=== PATIENT | female | born 1990 | race Caucasian/White ===

== ENCOUNTER 2016-04-02 18:07 | Emergency (ER) | payer OTHER ==
[~2016-04-02] VITALS: Ht 160 cm; Wt 75.2 kg
[~2016-04-02 18:07] MED LIST: AZITHROMYCIN250 MG1 PO; BACLOFEN20 MG PO; BENADRYL25 MG PO; BENTYL10 MG PO; BUPROPION XL150 MG PO; CIPRO500 MG PO; Feosol PO; IBUPROFEN600 MG PO; KEFLEX500 MG PO; MAGIC MOUTHWASH1 ML MM; METHADONE1 MG/1 ML PO; METHADOSE40 MG PO; NATALCARE RX1 TABLET PO; PAROXETINE HCL20 MG PO; PEPCID20 MG PO; PERCOCET 5/31 TABLET PO; PREDNISONE20 MG PO; ROZEREM8 MG PO; SPRINTEC1 EACH PO; VENTOLIN HFA18 GM IH; ZOFRAN4 MG PO
[2016-04-02 19:23] LABS: HEMATOCRIT 39.6 % (36.0-46.0); MCH 29.9 PG (29.0-34.0); MCHC 34.8 G/DL (30.0-36.0); MCV 85.9 FL (83-99); PLATELET COUNT 235 K/uL (156-360); RBC DIS.WIDTH-SD 40.4 % (39-53); RED BLOOD COUNT 4.61 M/uL (3.80-5.20); WHITE BLOOD COUNT 16.7 K/uL (4.1-10.2)
[2016-04-02 19:35] LABS: CHLORIDE 102 mEq/L (99-109); POTASSIUM 3.7 mEq/L (3.7-5.4); SODIUM 139 mEq/L (136-147)
[2016-04-02 19:36] LABS: GLUCOSE 122 mg/dL (70-99)
[2016-04-02 19:38] LABS: ANION GAP 11 MEQ/L (2-14)
[2016-04-02 19:40] LABS: GFR ESTIMATE (CALCULATED) > 59 mL/min/
[2016-04-02 19:41] LABS: UREA NITROGEN (BUN) 7 mg/dL (9-23)
[2016-04-02 19:53] LABS: D-DIMER ELISA 0.27 mg/L FEU (< 0.57)
[2016-04-02] MEDS ORDERED: VENTOLIN HFA18 GM IH (22:53)
[2016-04-02] MEDS ORDERED: PREDNISONE20 MG PO (22:54)
[2016-04-02] MEDS ORDERED: ZITHROMAX Z-PA250 MG PO (22:54)
[2016-04-02 23:08] VITALS: BP 126/85
== END 2016-04-02 23:11 | disposition home or self-care (01) ==
LOC: EME → EDBD 18:07 → EME 18:07
PROVIDERS: Emergency Medicine
DX: J20.9 Acute bronchitis, unspecified (principal); J45.909 Unspecified asthma, uncomplicated
CPT/HCPCS: 71020; 80048; 83880; 85027; 85379; 85610; 85730; 99281; 99285; J7030

== ENCOUNTER 2016-10-21 12:40 | Observation (INO) | payer OTHER ==
[~2016-10-21] VITALS: Ht 160 cm; Wt 77.2 kg
[~2016-10-21 12:40] MED LIST changes: +LEVONO-E ESTRA1 EACH PO; -METHADONE1 MG/1 ML PO; +METHADONE10 MG/1 M1 PO; -SPRINTEC1 EACH PO; +ZITHROMAX Z-PA250 MG PO
[2016-10-21] MEDS ORDERED: ACID CONTROL150 MG PO (16:09)
[2016-10-21] MEDS ORDERED: VENTOLIN HFA18 GM IH (16:09)
[2016-10-21] MEDS ORDERED: CYANOCOBALAM1000 MCG PO (16:10)
[2016-10-21] MEDS ORDERED: ONE-A-DAY ESSE1 EAC1 PO (16:10)
[2016-10-21] MEDS ORDERED: PROVENTIL,2.5 MG/3 M IH (16:10)
[2016-10-21] MEDS ORDERED: WELLBUTRIN XL150 MG PO (16:10)
[2016-10-21] MEDS ORDERED: ADDERALL20 MG PO (16:11)
[2016-10-21] MEDS ORDERED: IRON325 M1 PO (16:12)
[2016-10-21] MEDS ORDERED: NEURONTIN100 MG PO (16:12)
[2016-10-21] MEDS ORDERED: SENNA PLUS TAB1 EACH PO (16:13)
[2016-10-21] MEDS ORDERED: ALEVE220 MG PO (16:14)
[2016-10-21 17:25] VITALS: BP 127/71
[2016-10-21 19:21] LABS: EOSINOPHIL (%) 0.1 % (0-5); HEMATOCRIT 41.5 % (36.0-46.0); IMMATURE GRANULOCYTE (%) 0.3 % (0.0-0.7); INSTRUMENT ABS NEUTROPHIL CT 7.3 K/uL; LYMPHOCYTE COUNT 0.6 K/uL (1.0-2.8); MCH 29.7 PG (29.0-34.0); MCV 87.4 FL (83-99); MONOCYTE (%) 0.3 % (3-12); NEUTROPHIL (%) 92.1 % (45-76); NEUTROPHIL COUNT 7.3 K/uL (1.8-6.4); PLATELET COUNT 256 K/uL (156-360); RBC DIS.WIDTH-CV 13.2 % (11.8-14.6); RBC DIS.WIDTH-SD 42.5 % (39-53); RED BLOOD COUNT 4.75 M/uL (3.80-5.20)
[2016-10-21 19:34] LABS: ANION GAP 12 MEQ/L (2-14); CHLORIDE 102 MEQ/L (99-109); MAGNESIUM 2.3 mg/dl (1.3-2.7); POTASSIUM 4.1 MEQ/L (3.7-5.4); SAMPLE HEMOLYSIS CHECK 0; SAMPLE ICTERIC CHECK 0; SAMPLE LIPEMIA CHECK 0; SODIUM 139 MEQ/L (136-147); TOTAL BILIRUBIN 0.3 MG/DL (0.0-1.0)
[2016-10-21 19:39] LABS: ALKALINE PHOSPHATASE 60 IU/L (3-129); GFR ESTIMATE (CALCULATED) > 59 mL/min/; GLUCOSE 161 mg/dL (70-99); UREA NITROGEN (BUN) 7 mg/dL (9-23)
[2016-10-22 00:15] VITALS: BP 154/73
[2016-10-22 04:07] VITALS: BP 146/71
[2016-10-22 07:18] VITALS: BP 114/72
[2016-10-22] MEDS ORDERED: AZITHROMYCIN500 M1 PO (09:44)
[2016-10-22] MEDS ORDERED: PREDNISONE10 MG PO (09:45)
[2016-10-22 11:37] VITALS: BP 123/68
== END 2016-10-22 12:15 | disposition home or self-care (01) ==
LOC: EME 12:40 → 5WEST 16:40 → EDOF 16:40 → ENRESERV 16:41 → 5WEST 17:21
PROVIDERS: Physician Assistant Medical
DX: J45.901 Unspecified asthma with (acute) exacerbation (principal); F90.9 Attention-deficit hyperactivity disorder, unspecified type; G89.29 Other chronic pain; M54.9 Dorsalgia, unspecified; Z79.891 Long term (current) use of opiate analgesic; R00.0 Tachycardia, unspecified
CPT/HCPCS: 36600; 71020; 80053; 82803; 83735; 85025; 94640; 94640 76; 99202; 99281; 99284; G0378; J2930; J3475

== ENCOUNTER 2017-10-20 21:37 | Emergency (ER) | payer OTHER ==
[~2017-10-20] VITALS: Ht 160 cm; Wt 91.8 kg
[~2017-10-20 21:37] MED LIST changes: +ACID CONTROL150 MG PO; +ADDERALL20 MG PO; +ALEVE220 MG PO; +AZITHROMYCIN500 M1 PO; +CYANOCOBALAM1000 MCG PO; +IRON325 M1 PO; +NEURONTIN100 MG PO; +ONE-A-DAY ESSE1 EAC1 PO; +PREDNISONE10 MG PO; +PROVENTIL,2.5 MG/3 M IH; +SENNA PLUS TAB1 EACH PO; +WELLBUTRIN XL150 MG PO
[2017-10-20 22:04] LABS: HEMATOCRIT 38.3 % (36.0-46.0); HEMOGLOBIN 13.1 G/DL (11.9-15.5); MCH 28.6 PG (29.0-34.0); MCHC 34.2 G/DL (30.0-36.0); MCV 83.6 FL (83-99); PLATELET COUNT 276 K/uL (156-360); RBC DIS.WIDTH-CV 12.7 % (11.8-14.6); RBC DIS.WIDTH-SD 38.3 % (39-53); RED BLOOD COUNT 4.58 M/uL (3.80-5.20)
[2017-10-20 22:13] LABS: ALBUMIN 4.1 g/dL (3.2-4.8)
[2017-10-20 22:14] LABS: CHLORIDE 102 mEq/L (99-109); POTASSIUM 3.5 mEq/L (3.7-5.4); SODIUM 138 mEq/L (136-147)
[2017-10-20 22:16] LABS: GLUCOSE 101 mg/dL (70-99); TOTAL PROTEIN 7.7 g/dL (6.4-8.3)
[2017-10-20 22:18] LABS: TOTAL BILIRUBIN 0.1 mg/dL (0.0-1.0)
[2017-10-20 22:19] LABS: ALKALINE PHOSPHATASE 76 IU/L (3-129)
[2017-10-20 22:20] LABS: CREATININE 1.2 mg/dL (0.6-1.3); GFR ESTIMATE (CALCULATED) 57 mL/min/
[2017-10-20 22:21] LABS: AST (GOT) 23 IU/L (2-34); UREA NITROGEN (BUN) 8 mg/dL (9-23)
[2017-10-20 22:22] LABS: ALT (GPT) 19 IU/L (3-49)
[2017-10-20 22:28] LABS: QUANTITATIVE HCG < 4.0 MIU/ML
[2017-10-20] MEDS ORDERED: ZOFRAN4 MG PO (23:30)
[2017-10-20 23:44] VITALS: BP 152/99
== END 2017-10-20 23:30 | disposition home or self-care (01) ==
LOC: EME 21:37
DX: K04.7 Periapical abscess without sinus (principal); R11.2 Nausea with vomiting, unspecified; F90.9 Attention-deficit hyperactivity disorder, unspecified type; Z79.891 Long term (current) use of opiate analgesic; Z87.891 Personal history of nicotine dependence
CPT/HCPCS: 80053; 81003; 84702; 85027; 99281; 99284